=== PATIENT | female | born 1975 | race Caucasian/White ===

== ENCOUNTER 2022-06-25 15:13 | Emergency (ER) | payer OTHER ==
[2022-06-25 16:31] LABS: Absolute Neutrophil Ct (ANC) 1.58 x10^3/uL (1.4-6.9); Basophil (Absolute #) 0.04 x10^3/uL (0-0.4); Eosinophil % 1.4 % (0.00-5.0); Eosinophil (Absolute #) 0.07 x10^3/uL (0-0.5); Hematocrit 38.6 % (35-47); Hemoglobin 13.3 g/dL (12.0-16.0); Lymphocyte (Absolute #) 2.96 x10^3/uL (1.0-4.6); Mean Cell Volume 92.1 fL (78-100); Mean Corpuscular Hemoglobin 31.7 pg (26-32); Mean Corpuscular Hgb Concent. 34.5 g/dL (32-36); Mean Platelet Volume 9.4 fL (7.5-11.0); Monocyte (Absolute #) 0.44 x10^3/uL (0.0-1.3); Monocytes % 8.6 % (0.0-12.0); Platelet Count 214 x10^3/uL (150-450); Red Blood Count 4.19 x10^6/uL (4.1-5.4); Red Cell Distribution Width 12.3 % (11.5-14.0); White Blood Count 5.1 x10^3/uL (4.0-10.5)
[2022-06-25 16:35] LABS: ALBUMIN 4.7 g/dL (3.5-5.0); ANION GAP 13.5 MEQ/L (5-15); BILIRUBIN,TOTAL 0.3 mg/dL (0.2-1.3); Calcium 9.1 mg/dL (8.4-10.2); Creatinine 1 1.22 mg/dL (0.52-1.04); EST GLOMERULAR FILTRATION RATE 50.4 ML/MIN; Potassium 3.7 mmol/L (3.5-5.1)
[2022-06-25 16:58] LABS: Epithelial Cells RARE /HPF (FEW)
[2022-06-25 17:00] LABS: Appearance CLEAR (CLEAR); Bilirubin NEGATIVE (NEGATIVE); Glucose NEGATIVE (NEGATIVE); Ketones NEGATIVE (NEGATIVE); Nitrite NEGATIVE (NEGATIVE); Protein,Urine Dip NEGATIVE (Negative); RBC SMALL Ery/ul (0-5); Specific Gravity 1.015 (1.005-1.025); Urine Cultured Indicated? NO; Urobilinogen 0.2 mg/dL (0-1)
[2022-06-25 17:01] LABS: Dipstick done @ ? MAIN LAB
[2022-06-25] MEDS ORDERED: Sodium Chloride 0.9% 1000 ML 1,000 ML IV STA (17:35)
--- NOTE | 2022-06-25 17:35 | ERPHSYRPT ---
- History of Present Illness Time Seen by Provider: 06/25/22 15:30 Source: patient Exam Limitations: no limitations Patient Subjective Stated Complaint: pt here for vaginal bleeding for 2 days with clots, she states she is changing more than one pad an hour. pt is unsure i f she is Triage Nursing Assessment: pt alert, crying off and on , resp easy, face mask in place, skin w/d/p, abd soft, she states feels like period cramping Physician History: Patient is a 46-year-old female presents to emergency department for evaluation of cramping and vaginal bleeding. status is unknown. Patient states that for the past couple days she has been going through 1 pad every 1.5 hours. Although patient states that her current pad has been on for the past 4 hours. Pad is dry. Patient otherwise feels well she is asymptomatic. Patient denies vaginal bleeding at this time. No pelvic cramping. Patient states her SHIPPING AND RECEIVING SPECIALIST physician advised her to come to our ED for basic labs to assess her hemoglobin. Patient otherwise feels well. She voices no other complaints or concerns at this time. Portions of this note were created with voice recognition technology. There may be grammatical, spelling, punctuation or sound alike errors Timing/Duration: yesterday Severity: mild Modifying Factors: Improves With: nothing Associated Symptoms: denies symptoms Allergies/Adverse Reactions: No Known Drug Allergies Allergy (Unverified 09/09/13 20:33) Home Medications: No Reportable Medications [No Reported Medications] 06/25/22 [History] Hx Tetanus, Diphtheria Vaccination/Date Given: No Hx Influenza Vaccination/Date Given: Yes Hx Pneumococcal Vaccination/Date Given: No Immunizations Up to Date: Yes Travel Risk - International Travel Have you traveled outside of the country in past 3 weeks: No - Coronavirus Screening Are you exhibiting any of the following symptoms?: No Symptoms: Fever Close contact with a COVID-19 positive Pt in past 14-21 Days: No - Vaccine Status Have you recieved a Covid-19 vaccination: Yes Cardiac Rehabilitation Specialist: Moderna - Vaccination Dates Date of 2cond Vaccination (if applicable): 2020 - Review of Systems Constitutional: No Symptoms, No Fever, No Chills Eyes: No Symptoms Ears, Nose, & Throat: No Symptoms Respiratory: No Symptoms, No Cough, No Dyspnea Cardiac: No Symptoms, No Chest Pain, No Edema, No Syncope Abdominal/Gastrointestinal: No Symptoms, No Abdominal Pain, No Nausea, No Vomiting, No Diarrhea Genitourinary Symptoms: No Symptoms, No Dysuria Musculoskeletal: No Symptoms, No Back Pain, No Neck Pain Skin: No Symptoms, No Rash Neurological: No Symptoms, No Dizziness, No Focal Weakness, No Sensory Changes Psychological: No Symptoms Endocrine: No Symptoms Hematologic/Lymphatic: No Symptoms Immunological/Allergic: No Symptoms All Other Systems: Reviewed and Negative - Past Medical History Pertinent Past Medical History: No - Past Surgical History Past Surgical History: Yes Female Surgical History: Section - Social History Smoking Status: Never smoker Exposure to second hand smoke: No Drug Use: none Patient Lives Alone: No - Female History Hx Last Menstrual Period: may Hx Now: No (unsure) - Nursing Vital Signs Nursing Vital Signs: Initial Vital Signs O2 Sat by Pulse Oximetry 97 06/25/22 15:14 Pain Scale Pain Intensity 0 - Physical Exam General Appearance: no apparent distress, alert Eye Exam: PERRL/EOMI, eyes nml inspection Ears, Nose, Throat Exam: normal ENT inspection, TMs normal, pharynx normal, moist mucous membranes Neck Exam: normal inspection, non-tender, supple, full range of motion Respiratory Exam: normal breath sounds, lungs clear, airway intact, No respiratory distress Cardiovascular Exam: regular rate/rhythm, normal heart sounds, normal peripheral pulses Gastrointestinal/Abdomen Exam: soft, normal bowel sounds, No tenderness, No mass Rectal Exam: hemorrhoids Back Exam: normal inspection, normal range of motion, No CVA tenderness, No vertebral tenderness Extremity Exam: normal inspection, normal range of motion, pelvis stable Neurologic Exam: alert, oriented x 3, cooperative, normal mood/affect, nml cerebellar function, nml station & gait, sensation nml, No motor deficits Skin Exam: normal color, warm, dry, No rash Lymphatic Exam: No adenopathy SpO2 Interpretation: normal SpO2: 98 O2 Delivery: Room Air - Course Nursing assessment & vital signs reviewed: Yes Ordered Tests: Active Orders 24 hr Category Date Time Status Switch Maker STAT Care 06/25/22 16:14 Active IV Insertion STAT Care 06/25/22 16:14 Active Pulse Oximetry (ED) STAT Care 06/25/22 16:14 Active CBC W DIFF Stat Lab 06/25/22 16:00 Completed CMP Stat Lab 06/25/22 16:00 Completed HCG,QUALITATIVE URINE Stat Lab 06/25/22 17:47 Completed UA W/RFX CULTURE Stat Lab 06/25/22 16:39 Completed Medication Summary Generic Name Dose Route Start Last Admin Trade Name Oumar PRN Reason Stop Dose Admin Sodium Chloride 1,000 mls @ 999 mls/hr 06/25/22 17:35 06/25/22 17:41 Sodium Chloride 0.9% 1000 Ml IV 06/25/22 18:35 999 mls/hr .[id number] STA Administration Discontinued Medications Generic Name Dose Route Start Last Admin Trade Name Mayurq PRN Reason Stop Dose Admin Sodium Chloride Confirm 06/25/22 17:39 Sodium Chloride 0.9% 1000 Ml Administered 06/25/22 17:40 Dose 1,000 mls @ ud .ROUTE .[facility] Lab/Rad Data: Laboratory Result Diagrams 06/25/22 16:00 06/25/22 16:00 Laboratory Results 06/25/22 06/25/22 06/25/22 Range/Units 17:47 16:39 16:00 WBC (4.0-10.5) x10^3/uL RBC (4.1-5.4) x10^6/uL Hgb (12.0-16.0) g/dL Hct (35-47) % MCV (78-100) fL MCH (26-32) pg MCHC (32-36) g/dL RDW (11.5-14.0) % Plt Count (150-450) x10^3/uL MPV (7.5-11.0) fL Gran % (36.0-66.0) % Immature Gran % (Auto) (0.00-0.4) % Nucleat RBC Rel Count (0.00-0.1) % Eos # (Auto) (0-0.5) x10^3/uL Immature Gran # (Auto) (0.00-0.03) x10^3u/L Absolute Lymphs (auto) (1.0-4.6) x10^3/uL Absolute Monos (auto) (0.0-1.3) x10^3/uL Absolute Nucleated RBC (0.00-0.01) x10^3u/L Lymphocytes % (24.0-44.0) % Monocytes % (0.0-12.0) % Eosinophils % (0.00-5.0) % Basophils % (0.0-0.4) % Absolute Granulocytes (1.4-6.9) x10^3/uL Basophils # (0-0.4) x10^3/uL Sodium 140 (137-145) mmol/L Potassium 3.7 (3.5-5.1) mmol/L Chloride 105 (98-107) mmol/L Carbon Dioxide 25 (22-30) mmol/L Anion Gap 13.5 (5-15) MEQ/L BUN 18 H (7-17) mg/dL Creatinine 1.22 H (0.52-1.04) mg/dL Estimated GFR 50.4 ML/MIN Glucose 102 (74-106) mg/dL Calcium 9.1 (8.4-10.2) mg/dL Total Bilirubin 0.30 (0.2-1.3) mg/dL AST 27 (14-36) U/L ALT 21 (0-35) U/L Alkaline Phosphatase 82 (38-126) U/L Serum Total Protein 8.0 (6.3-8.2) g/dL Albumin 4.7 (3.5-5.0) g/dL Urinalys Dipstick Clnc MAIN LAB Urine Color YELLOW (YELLOW) Urine Appearance CLEAR (CLEAR) Urine pH 7.0 (5-6) Ur Specific [place] 1.015 (1.005-1.025) POC Urine Protein Conf NEGATIVE (Negative) Urine Ketones NEGATIVE (NEGATIVE) Urine Nitrite NEGATIVE (NEGATIVE) Urine Bilirubin NEGATIVE (NEGATIVE) Urine Urobilinogen 0.2 (0-1) mg/dL Urine Leukocytes NEGATIVE (NEGATIVE) Urine WBC (Auto) NONE (0-5) /HPF Urine RBC (Auto) 3-5 (0-2) /HPF U Epithel Cells (Auto) RARE (FEW) /HPF Urine RBC SMALL (0-5) Carlos Enrique/ul Ur Culture Indicated? NO Urine Glucose NEGATIVE (NEGATIVE) mg/dL Urine HCG, Qual NEGATIVE (Negative) 06/25/22 Range/Units 16:00 WBC 5.1 (4.0-10.5) x10^3/uL RBC 4.19 (4.1-5.4) x10^6/uL Hgb 13.3 (12.0-16.0) g/dL Hct 38.6 (35-47) % MCV 92.1 (78-100) fL MCH 31.7 (26-32) pg MCHC 34.5 (32-36) g/dL RDW 12.3 (11.5-14.0) % Plt Count 214 (150-450) x10^3/uL MPV 9.4 (7.5-11.0) fL Gran % 31.0 L (36.0-66.0) % Immature Gran % (Auto) 0.2 (0.00-0.4) % Nucleat RBC Rel Count 0.0 (0.00-0.1) % Eos # (Auto) 0.07 (0-0.5) x10^3/uL Immature Gran # (Auto) 0.01 (0.00-0.03) x10^3u/L Absolute Lymphs (auto) 2.96 (1.0-4.6) x10^3/uL Absolute Monos (auto) 0.44 (0.0-1.3) x10^3/uL Absolute Nucleated RBC 0.00 (0.00-0.01) x10^3u/L Lymphocytes % 58.0 H (24.0-44.0) % Monocytes % 8.6 (0.0-12.0) % Eosinophils % 1.4 (0.00-5.0) % Basophils % 0.8 (0.0-0.4) % Absolute Granulocytes 1.58 (1.4-6.9) x10^3/uL Basophils # 0.04 (0-0.4) x10^3/uL Sodium (137-145) mmol/L Potassium (3.5-5.1) mmol/L Chloride (98-107) mmol/L Carbon Dioxide (22-30) mmol/L Anion Gap (5-15) MEQ/L BUN (7-17) mg/dL Creatinine (0.52-1.04) mg/dL Estimated GFR ML/MIN Glucose (74-106) mg/dL Calcium (8.4-10.2) mg/dL Total Bilirubin (0.2-1.3) mg/dL AST (14-36) U/L ALT (0-35) U/L Alkaline Phosphatase (38-126) U/L Serum Total Protein (6.3-8.2) g/dL Albumin (3.5-5.0) g/dL Urinalys Dipstick Clnc Urine Color (YELLOW) Urine Appearance (CLEAR) Urine pH (5-6) Ur Specific [place] (1.005-1.025) POC Urine Protein Conf (Negative) Urine Ketones (NEGATIVE) Urine Nitrite (NEGATIVE) Urine Bilirubin (NEGATIVE) Urine Urobilinogen (0-1) mg/dL Urine Leukocytes (NEGATIVE) Urine WBC (Auto) (0-5) /HPF Urine RBC (Auto) (0-2) /HPF U Epithel Cells (Auto) (FEW) /HPF Urine RBC (0-5) Carlos Enrique/ul Ur Culture Indicated? Urine Glucose (NEGATIVE) mg/dL Urine HCG, Qual (Negative) - Progress Progress: improved Progress Note: Patient reassessed. She is well. No active bleeding. Patient has not had any active bleeding for the last 4 hours. Patient's pad is clean. Vitals are within normal limits. Cramping has resolved. negative. Patient declined pelvic exam and ultrasound. Case discussed with her SHIPPING AND RECEIVING SPECIALIST physician who feels patient is appropriate for discharge. Patient agrees to follow-up with her SHIPPING AND RECEIVING SPECIALIST physician within 48 hours for evaluation. She voices no other complaints or concerns at this time. Patient is ready for discharge. Portions of this note were created with voice recognition technology. There may be grammatical, spelling, punctuation or sound alike errors 06/25/22 17:[address] with DrAsh: Liset Will see patient in: office Counseled pt/family regarding: lab results, diagnosis, need for follow-up - Departure Departure Disposition: Home Clinical Impression: Acute renal injury, Vaginal bleeding Condition: Stable Critical Care Time: No Referrals: DOCTOR,NO FAMILY [NON-STAFF PHY W/O PRIVILEGES] - Follow up/PCP as directed Additional Instructions: Discharge/Care Plan ROGERSMICKEY CORONADO was seen on 06/25/22 in the Emergency Room. The patien t was counseled regarding Diagnosis,Lab results, Imaging studies, need for follow up and when to return to the Emergency Room. Prescriptions given: Discharge Note I have spoken with the patient and/or caregivers. I have explained the patient's condition, diagnosis and treatment plan based on the information available to me at this time. I have answered the patient's and/or caregiver's questions and addressed any concerns. The patient and/or caregivers have as good understanding of the patient's diagnosis, condition and treatment plan as can be expected at this point. The vital signs have been stable. The patient's condition is stable and appropriate for discharge from the emergency department. The patient will pursue further outpatient evaluation with the primary care physician or other designated or consulting physician as outlined in the discharge instructions. The patient and/or caregivers are agreeable to this plan of care and follow-up instructions have been explained in detail. The patient and/or caregivers have received these instruction. The patient/and or caregivers are aware that any significant change in condition or worsening of symptoms should prompt an immediate return to this or the closest emergency department or call 911.
[2022-06-25] MEDS ORDERED: Sodium Chloride 0.9% 1000 ML 1,000 ML ONE (17:39)
[2022-06-25 17:47] VITALS: PULSE 62
[2022-06-25 18:39] VITALS: BP 104/50; O2SAT 100
== END 2022-06-25 18:39 | disposition home or self-care (01) ==
LOC: ED 15:13
DX: N93.9 Abnormal uterine and vaginal bleeding, unspecified (principal); N17.9 Acute kidney failure, unspecified
CPT/HCPCS: 36000; 36415; 80053; 81015; 81025; 85025; 94760; 99283

== ENCOUNTER 2022-07-16 06:07 | Day surgery (SDC) | payer OTHER ==
[2022-07-16] MEDS ORDERED: Versed 2 MG/2 ML Injection ONE (06:30)
[2022-07-16] MEDS ORDERED: Xylocaine-Mpf 2% 5 Ml Vial ONE (06:30)
[2022-07-16] MEDS ORDERED: Zofran 4 MG/2 ML VIAL ONE (06:30)
[2022-07-16] MEDS ORDERED: CEFAZOLIN 2 GM-D5W BAG** 2 GM/50 ML ML IV SCH (06:30)
[2022-07-16] MEDS ORDERED: Lactated Ringers 1,000 ML IV SCH (06:30)
[2022-07-16] MEDS ORDERED: DIPRIVAN 200 MG/20 ML IV ONE ×2 (06:30→07:27)
[2022-07-16] MEDS ORDERED: SUBLIMAZE 100 MCG/2 ML ONE (06:30)
[2022-07-16] MEDS ORDERED: XYLOCAINE 2%/Epi 1:200000 20ML VIAL MPF ONE (07:27)
[2022-07-16] MEDS ORDERED: Transderm Scop 1.5MG Patch ONE (08:01)
[2022-07-16] MEDS ORDERED: Decadron 4 MG INJ ONE (08:18)
[2022-07-16] MEDS ORDERED: Reglan 10 MG/2 ML ONE (08:18)
[2022-07-16] MEDS ORDERED: Lactated Ringers 1,000 ML IV ONE (08:43)
[2022-07-16 10:13] VITALS: O2SAT 100
[2022-07-16 10:56] VITALS: BP 139/79; PULSE 54
--- NOTE | 2022-07-17 08:56 | OP ---
SURGERY DATE/TIME: 07/16/2022 0803 PREOPERATIVE DIAGNOSIS: Menorrhagia. POSTOPERATIVE DIAGNOSIS: Menorrhagia. PROCEDURE: Hysteroscopy with MyoSure resection of endometrial polyp, D&C, NovaSure ablation. SURGEON: Kiran Booth D.O. GEOSPATIAL TECHNOLOGIST: Shannan Alberto, surgical services manager. ANESTHESIA: General. ESTIMATED BLOOD LOSS: Minimal. COMPLICATIONS: None. INDICATIONS: The risks, benefits, indications and alternatives of the procedure were reviewed with the patient prior to the procedure. The patient understood the risk of infection, bleeding, bowel injury, bladder injury, ureteral injury, uterine perforation and pelvic infection associated with this surgery and desires to have this surgery as a possible means to alleviate her current medical condition. DESCRIPTION OF PROCEDURE AND FINDINGS: At this point the patient is taken to the operating room, given general sedation, placed in dorsal lithotomy position, prepped and draped in the usual sterile fashion. A weighted speculum is then placed in the patient's vagina and the anterior lip of the cervix was grasped with a single tooth tenaculum. Endocervical dilators were advanced through the endocervical canal as a means to dilate the cervix and the hysteroscope was then placed in through the endocervical region where visualization appeared to be normal. However, there was an approximately 2 x 2 cm endometrial polyp located just proximal to the internal cervical os. From this point the MyoSure was then used and was taken through the endocervical region where the MyoSure was used to resect the polypoid lesion and was done so without complication. Visualization of the remaining uterine cavity appeared to be within normal limits. From this point, the hysteroscope was then removed and the curette was then placed into the fundus of the uterus and curettage performed in all quadrants of the uterus retrieving a mild to moderate amount of tissue. From this point the NovaSure was then placed through the endocervical region towards the fundal region where the length was set at 6.5 cm and the width at 3.2 cm and it was engaged and the machine was turned on for an ablative time of 50 seconds. After complete ablation, the NovaSure was disengaged and removed from the uterine cavity without complication. From this point all instruments were removed from the patient's vaginal region. The patient was then taken out of dorsal lithotomy position and was taken out of anesthesia and was then taken to the recovery room in stable condition. All instruments and laps were accounted for x2.
== END 2022-07-16 10:45 | disposition home or self-care (01) ==
LOC: SDC 06:07
PROVIDERS: ATTEND Obstetrics & Gynecology
DX: N92.0 Excessive and frequent menstruation with regular cycle (principal)
CPT/HCPCS: 81025; J0690; J1100; J2250; J2405; J2704; J3010; A9270-GY